=== PATIENT | female | born 1985 | race Caucasian/White ===

== ENCOUNTER 2020-06-04 15:51 | Outpatient (REF) | payer OTHER, SELFPAY ==
--- NOTE | 2020-06-04 15:58 | XR_ITS ---
EXAMINATION: XR CHEST CLINICAL INFORMATION: Cough. COMPARISON: Chest 12/18/2012 TECHNIQUE: 2 views of the chest were obtained. FINDINGS: No significant abnormality is noted involving the heart, lungs, mediastinum, bony thorax or soft tissues. XR/XR chest 2V IMPRESSION: Unremarkable chest examination.
== END 2020-06-04 15:52 | disposition home or self-care (01) ==
LOC: HO.HMGCX 15:51
PROVIDERS: Visit Provider Nurse Practitioner Family
DX: R05 Cough (principal)
CPT/HCPCS: 71046

== ENCOUNTER 2024-12-16 13:49 | Outpatient (AMB) | payer OTHER, SELFPAY ==
--- NOTE | 2024-12-16 13:51 | MHC.PC.OV ---
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 She lives at home with her fiance and 2 children and feels safe there. 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 She does report she drinks 3-4 alcoholic beverages 3-4 nights a week. No history of cigarette smoking. No illicit drug use. Does smoke marijuana several times weekly. She exercises regularly with callus Nx and jogging. Overall follows a healthy diet. Concerns: Believe she is perimenopausal. Still getting regular periods. She is reporting hot flashes and occasional swelling Health maintenance: Mammograms to start at age 41 Colonoscopies to started at age 46 ROS: General: No fevers, malaise, unintentional weight loss HEENT: No blurred vision, diplopia. No sore throat, nasal congestion, rhinorrhea, sinus pain, ear pain. No hearing loss Neck - no adenopathy Cardiovascular: No chest pain, palpitations, or leg edema Respiratory: No shortness of breath, wheezing, cough Breast: No pain, palpable lumps, nipple inversion GI: No dysphagia, odynophagia, globus sensation. No abdominal pain, nausea, vomiting, diarrhea, constipation, melena, hematochezia : No dysuria, hematuria, increased urinary frequency, decreased urinary output. [employer]: No abn vaginal bleeding or discharge MSK: No myalgia, back pain, arthralgias Neuro: No headaches, weakness, paresthesias Psych: no depression/anxiery. No AH/VH. No SI/HI Skin: No rashes or lesions EXAM: Constitutional - Awake and Alert, No apparent distress Eyes - PERRLA, EOMI. Anicteric Ears - external ears normal, canals clear, TMs intact and pearly paz with good cone of light Nose- septum midline, nares clear, no sinus tenderness Mouth/throat- mucosa moist, tongue and uvula midline, no erythema/edema or tonsillar adenopathy. Neck-trachea midline, thyroid symmetric without palpable nodules, no adenopathy Cardiovascular - S1S2, RRR, No edema Respiratory - Normal lung expansion, Normal respiratory effort, No respiratory distress, CTA bilaterally Gastrointestinal - NT / ND; +BS; No rebound or guarding - No CVA tenderness Extremities - no calf tenderness bilaterally, no swelling Musculoskeletal - Normal inspection, normal ROM Skin - Warm/Dry, no concerning lesions Neurological - Alert & oriented x3, CN II-XII in tact, 5/5 strength BUE and BLE, 2+ patellar reflexes, sensation intact Psychological - Appropriate affect [facility] Medical History (Updated 12/16/24 @ 14:37 by JOSE ALBERTO De Jesus) Herpes zoster Surgical History (Updated 12/16/24 @ 14:23 by JOSE ALBERTO De Jesus) No pertinent past surgical history Family History (Updated 12/16/24 @ 14:24 by JOSE ALBERTO De Jesus) Father CAD (coronary artery disease) Atrial fibrillation Diabetes Asthma Father Chronic kidney disease Social History Patient Tobacco Use Status: Never used Tobacco e-Cigarette/Vaping Use: Never Used Questionnaire PHQ-9 Over the last 2 weeks, how often have you been bothered by any of the following problems? 1. Little interest or pleasure in doing things: not at all 2. Feeling down, depressed, or hopeless: not at all 3. Trouble falling or staying asleep, or sleeping too much: not at all 4. Feeling tired or having little energy: not at all 5. Poor appetite or overeating: not at all 6. Feeling bad about yourself - or that you are a failure or have let yourself or your family down: not at all 7. Trouble concentrating on things, such as reading the newspaper or watching television: not at all 8. Moving or speaking so slowly that other people could have noticed. Or the opposite - being so fidgety or restless that you have been moving around a lot more than usual: not at all 9. Thoughts that you would be better off or of hurting yourself in some way: not at all Total score: 0 Source: Developed by Drs. Jonnathan Baird, Dez Jackson and colleagues, with an educational jocelyne from [employer]. Thrive Questionnaire Date Thrive assessed: 12/16/24 I am a: Patient What is your living situation today?: I have a steady place to live Within the past 12 months, did the food you bought not last and you didn't have the money to get more?: Never true Within the past 12 months, did you worry whether your food would run out before you got money to buy more?: Never true Do you have trouble paying for medicines?: No Do you have trouble getting transportation to medical appointments?: No Do you have trouble paying your heating and electricity bill?: No Do you have trouble taking care of your child, family member or friend?: No Do you have trouble with day-to-day activities such as bathing, preparing meals, shopping, managing finances, etc.?: No Are you currently unemployed and looking for a job?: No Are you interested in more education?: No THRIVE Score: 0 AUDIT C Alcohol Use Questionnaire (AUDIT-C) 1. How often do you have a drink containing alcohol?: 2-3 times a week 2. How many drinks containing alcohol do you have on a typical day when you are drinking?: 3 or 4 Total Score: 4 CLAUDIO-7 AMB Questionnaire CLAUDIO-7 Date CLAUDIO - 7 assessed: 12/16/24 Feeling nervous, anxious, or on edge: 0 = Not at all Not being able to stop or control worryin = Not at all Worrying too much about different things: 0 = Not at all Trouble relaxin = Not at all Being so restless that it is hard to sit still: 0 = Not at all Becoming easily annoyed or irritable: 0 = Not at all Feeling afraid as if something awful might happen: 0 = Not at all Total CLAUDIO-7 score (0-4 normal; 5-9 mild; 10-14 moderate; 15-21 severe): 0 Source: Developed by Drs. Jonnathan Baird, Dez Jackson and colleagues, with an educational jocelyne from [employer]. Physical exam (Primary Care) Vital Signs: Last Vital Signs Temp 97.3 F 12/16/24 13:55 Pulse 84 12/16/24 13:55 Resp 16 12/16/24 13:55 BP 110/68 12/16/24 13:55 Pulse Ox 99 12/16/24 13:55 Oxygen Delivery Method Room Air 12/16/24 13:55 BMI result Body Mass Index 24.1 Tobacco/Smoking Status: Tobacco use Status Tobacco use date assessed 12/16/24 12/16/24 13:58 Patient Tobacco Use Status Never used Tobacco 12/16/24 13:58 e-Cigarette/Vaping Use Never Used 12/16/24 13:58 PHQ-9: PHQ-9 Score PHQ-9: Total score 0 12/16/24 13:59 Thrive Assessment: Date of Thrive Assessment Date Thrive assessed 12/16/24 12/16/24 13:59 Coding Level of Care Code New Pt Prev Care 18-39yr([id number] Diagnoses Routine medical exam Z00.00 Assessment & Plan Assessment & Plan (1) Routine medical exam: Code(s): Z00.00 - Encounter for general adult medical examination without abnormal findings Plan: 39-year-old female presents for annual physical exam is found to be in a good general state of health. She is counseled on alcohol use recommending no more than 1-2 alcoholic beverages in a sitting and no more than 7 alcoholic beverages in a week. Counseled on marijuana use-recommending at of ulcer tinctures rather than smoking. Were hot flashes, will check TSH but could also be perimenopausal. She can trial black cohosh [id number] if interested. Plan Routine screening labs as ordered below Continue with screening mammograms, Pap smears, colonoscopies Continue following for annual skin exams and use sun protection Annual eye exams Wear seat belt in car Recommend regular exercise and healthy diet Follow up in 1 year for annual physical Orders: Orders TSH reflex Free T4 Today Z00.00 - Encounter for general adult medical examination without abnormal findings Basic Metabolic Panel Today Z00.00 - Encounter for general adult medical examination without abnormal findings Complete Blood Count Auto Diff Today Z00.00 - Encounter for general adult medical examination without abnormal findings Lipid Panel Today Z00.00 - Encounter for general adult medical examination without abnormal findings Liver Panel Today Z00.00 - Encounter for general adult medical examination without abnormal findings Vitamin D 25-OH Total Today Z00.00 - Encounter for general adult medical examination without abnormal findings Medications: Discontinued sulfamethoxazole-trimethoprim 800-160 mg (Bactrim DS) Discontinued Reason: Patient Completed Course 1 tab PO BID 20 tabs 0RF
[2024-12-16 13:55] VITALS: BP 110/68; PULSE 84; RESP 16; TEMP 36.3; O2SAT 99; BMI 24.1
== END 2024-12-16 14:35 | disposition home or self-care (01) ==
LOC: HO.HMCHD 13:50
PROVIDERS: PCP Physician Assistant; Visit Provider Physician Assistant
DX: Z00.00 Encounter for general adult medical examination without abnormal findings (principal)

== ENCOUNTER 2024-12-18 07:51 | Outpatient (REF) | payer OTHER, SELFPAY ==
[2024-12-18 08:05] LABS: MANUAL DIFF FLAG NO
[2024-12-18 08:44] LABS: Hematocrit 40.9 % (37.0-47.0); Hemoglobin 13.9 g/dl (12.0-16.0); Imm Gran Abs Auto 0.01 X10*3/uL (0.00-0.03); Imm Gran Pct Auto 0.2 % (0.0-0.4); Lymphocytes Absolute Auto 1.3 X10*3/uL (1.2-4.9); Mean Corpuscular HGB Conc 34.0 g/dl (31.0-35.0); Mean Corpuscular Hemoglobin 31.7 pg (27.0-33.0); Mean Corpuscular Volume 93.2 fL (80.0-98.0); NRBC Abs Auto 0.000 X10*3/uL (0.0-0.012); NRBC Pct Auto 0.0 /100WBC (0.0-0.2); Platelet Count 212 X10*3/uL (160-400); Red Blood Count 4.39 X10*6/uL (4.20-5.50); White Blood Count 6.2 X10*3/uL (4.8-10.8)
[2024-12-18 09:21] LABS: Alanine Aminotransferase 21 U/L (0-31); Albumin Level 4.6 g/dL (3.5-5.0); Alkaline Phosphatase 62 U/L (39-117); Anion Gap 9 (12-20); Aspartate Amino Transferase 21 U/L (5-31); Blood Urea Nitrogen 14 mg/dL (9-16); Calcium 9.3 mg/dL (8.4-10.2); Carbon Dioxide 25 mmol/L (22-29); Chloride 107 mmol/L (96-108); Cholesterol 179 mg/dL (<200); Estimated Glomerular Filt Rate > 60; HDL Cholesterol 65 mg/dL (>40); Potassium 4.4 mmol/L (3.3-5.1); Sodium 137 mmol/L (135-145); Total Protein 7.2 g/dL (6.5-8.0); Triglycerides 74 mg/dL (<150)
== END 2024-12-18 07:52 | disposition home or self-care (01) ==
LOC: HO.LAB 07:51
PROVIDERS: PCP Physician Assistant; Visit Provider Physician Assistant
DX: Z00.00 Encounter for general adult medical examination without abnormal findings (principal)
CPT/HCPCS: 36415; 80048; 80061; 80076; 82306; 84443; 85025

== ENCOUNTER 2025-02-19 10:02 | Outpatient (AMB) | payer OTHER, SELFPAY ==
--- NOTE | 2025-02-19 10:12 | A.OFFPC_ITS ---
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 She reports that she has been cutting back on alcohol consumption. She had been drinking 3-4 tall IPAs to get intoxicated and potentially black out. Began experiencing interpersonal issues, and her daughter made a comment about her drinking. She stopped drinking on Feb 03. No withdrawal. No hx of withdrawal including w/d seizure. About 8 days ago she did drink at the [facility] but then stopped again. She tells me she even attended a concert last week and did not consume any alcohol which would typically be an environment where she would be drinking heavily. She does tell me that last night, she did again consume about 3 tall I PAs for her fiancee's birthday and did get intoxicated. She desires to stop drinking completely. She does report that she feels mad after she drinks. She is not interested in 12 step programs but would consider other programs potentially. States she feels she has been drinking as a coping mechanism as she states this makes her feel less anxious and numbness her. With the anxiety, she feels a tightness in her stomach and chest. She also endorses feelings of emptiness and hopelessness with significant intrusive thoughts/rumintation, especially at bedtime. She has difficulty focusing. No history of bipolar disorder but does have strong family history of psychiatric disorders on her father's side. She states she does feel hyperverbal and at times panicked but denies any hypersexuality, excessive spending, inability to sleep or other symptoms consistent with manny. She does report she has a history of depression and anxiety and does have a history of suicide attempt where she overdosed on Tylenol at age 17. She states that she also has a history of cutting behavior in her teenage years. She has been hospitalized several times as a result. She states in the past, she has been prescribed several SSRIs that have not been helpful. She felt that Wellbutrin was somewhat helpful in the past. She has not been on any medications in about 20 years. She currently denies any SI/HI. She has plans on scheduling a counseling appt at [facility] in [place]. ROS: see hpi EXAM: Constitutional - Awake and Alert, No apparent distress Eyes - PERRL Cardiovascular - S1S2, RRR, No edema Respiratory - Normal lung expansion, Normal respiratory effort, No respiratory distress, CTA bilaterally Extremities - no calf tenderness bilaterally, no swelling Skin - Warm/Dry Neurological - Alert & oriented x3 Psychological - Appropriate affect, hyperverbal at times PFSH Medical History (Updated 02/19/25 @ 10:50 by JOSE ALBERTO De Jesus) Anxiety Major depressive disorder Alcohol use disorder Herpes zoster Surgical History (Updated 12/16/24 @ 14:23 by JOSE ALBERTO De Jesus) No pertinent past surgical history Family History (Updated 12/16/24 @ 14:24 by JOSE ALBERTO De Jesus) Father CAD (coronary artery disease) Atrial fibrillation Diabetes Asthma Father Chronic kidney disease Social History Patient Tobacco Use Status: Never used Tobacco e-Cigarette/Vaping Use: Never Used Questionnaire Thrive Questionnaire Date Thrive assessed: 12/16/24 CLAUDIO-7 AMB Questionnaire CLAUDIO-7 Date CLAUDIO - 7 assessed: 12/16/24 Source: Developed by Drs. Jonnathan Baird, Rosangela Muller, Dez Bonilla and colleagues, with an educational jocelyne from [employer]. Physical exam (Primary Care) Vital Signs: Last Vital Signs Temp 98.5 F 02/19/25 10:14 Pulse 68 02/19/25 10:14 Resp 14 02/19/25 10:14 BP 100/74 02/19/25 10:14 Pulse Ox 99 02/19/25 10:14 Oxygen Delivery Method Room Air 02/19/25 10:14 BMI result Body Mass Index 24.0 Tobacco/Smoking Status: Tobacco use Status Tobacco use date assessed 12/16/24 02/19/25 10:14 Patient Tobacco Use Status Never used Tobacco 02/19/25 10:14 e-Cigarette/Vaping Use Never Used 02/19/25 10:14 Thrive Assessment: Date of Thrive Assessment Date Thrive assessed 12/16/24 02/19/25 10:14 Coding Level of Care Code Est Pt Level 4 (54555) Diagnoses Alcohol use disorder F10.90 Major depressive disorder F32.9 Anxiety F41.9 Assessment & Plan Assessment & Plan (1) Alcohol use disorder: Code(s): F10.90 - Alcohol use, unspecified, uncomplicated Category: Medical Plan: Commended on periods of cessation and encouraged ongoing abstinence. Trial naltrexone. Counseled on dosing and side effects. Encouraged to attend a support group meeting, recommended SMART program as she is not interested in a 12 step program. Follow-up with counseling (2) Major depressive disorder: Code(s): F32.9 - Major depressive disorder, single episode, unspecified Category: Medical Plan: Prescribed Wellbutrin 150 mg XL to be taken every morning which should help with her depression as well as provide some assistance with alcohol cessation. Counseled on side effects. Recommend following up with counselor (3) Anxiety: Code(s): F41.9 - Anxiety disorder, unspecified Category: Medical Plan: Wellbutrin as above. She can also use hydroxyzine as needed at night to help with rumination. Also given information on mindfulness/grounding techniques. Scheduled appointment with counselor Plan Follow-up in the office in 1 month, sooner if needed. Should symptoms worsen or she develop any SI, present to the ER or call 911 Medications: New naltrexone Take 1 tab daily x 3 days, can increase to 2 tabs daily if ongoing symptoms 50 mg PO DAILY 60 tabs 0RF bupropion HCl XL (Wellbutrin XL) 150 mg PO QAM 90 tabs 0RF hydroxyzine HCl 25 mg PO BEDTIME 90 tabs 0RF Patient Instructions: Mindfullness information - [email or web address]://[email or web address]/worksheets/xuf-ab-khnwinoe-mindfulness-meditation SMART - non 12 step support group. [email or web address]
[2025-02-19 10:14] VITALS: BP 100/74; PULSE 68; RESP 14; TEMP 36.9; O2SAT 99; BMI 24.0
== END 2025-02-19 10:43 | disposition home or self-care (01) ==
LOC: HO.HMCHD 10:03
PROVIDERS: PCP Physician Assistant; Visit Provider Physician Assistant
DX: F10.90 Alcohol use, unspecified, uncomplicated (principal); F32.9 Major depressive disorder, single episode, unspecified; F41.9 Anxiety disorder, unspecified

== ENCOUNTER → 2025-03-26 08:03 | Outpatient (AMB) | payer OTHER, SELFPAY ==
--- NOTE | 2025-03-26 07:58 | A.OFFPC_ITS ---
Vital Signs 03/26/25 08:08 Height 5 ft 5.12 in Weight 64.864 kg BMI 23.7 BP 116/72 Blood Pressure Location Lt brachial Position Sitting Respiration 16 Pulse 95 Pulse Source Pulse Oximeter Temp 97.8 F Temp Source Temporal Artery Scan Pulse Oximetry (%) 97 Oxygen Delivery Method Room Air Intake Visit Reasons: 1 Month F/U [employer] Required: No Accompanied by: Self / Same As Patient Allergies amoxicillin (Amoxicillin) Allergy (Unknown, Verified 03/26/25 07:59) RASH, hives penicillin V Allergy (Unknown, Verified 03/26/25 07:59) hives Penicillins Allergy (Unknown, Verified 03/26/25 07:59) RASH Medication List - Last Reconciled 03/26/25 by JOSE ALBERTO De Jesus bupropion HCl XL (Wellbutrin XL) 150 mg PO QAM Tobacco use date assessed: 12/16/24 HPI HPI Comments History of Present Illness Details 31-year-old female with history of depre ssion and alcohol use disorder presenting to the office today for follow-up. At last visit, she expressed desire to cut back on alcohol consumption-has been drinking 3-4 tall IPAA is to get intoxicated and potentially blackout. She was given prescription for Wellbutrin and naltrexone but states she has never taken the naltrexone. Reports she has not taking the naltrexone. Has cut back on alcohol consumption. Reports now drinking socially. Reports she will have 2-3 beers maybe 2 nights on the weekends. However, she does not have significant urges like previously. She can drive by a liquor store without feeling a need to consume alcohol. The Wellbutrin has also likely played a part in this. She also states that she has felt less depressed and feels like she is thinking clear and is able to finish tasks. She is also sleeping better. ROS: General: No fevers, malaise, unintentional weight loss HEENT: No blurred vision, diplopia. No sore throat, nasal congestion, rhinorrhea, sinus pain, ear pain Cardiovascular: No chest pain, palpitations, or leg edema Respiratory: No shortness of breath, wheezing, cough GI: No abdominal pain, nausea, vomiting, diarrhea, constipation, melena, hematochezia : No dysuria, hematuria, increased urinary frequency, decreased urinary output MSK: No myalgia, back pain Neuro: No headaches, weakness, paresthesias Psych: see hpi Skin: No rashes or lesions EXAM: Constitutional - Awake and Alert, No apparent distress Eyes - PERRL Cardiovascular - S1S2, RRR, No edema Respiratory - Normal lung expansion, Normal respiratory effort, No respiratory distress, CTA bilaterally Extremities - no calf tenderness bilaterally, no swelling Skin - Warm/Dry Neurological - Alert & oriented x3 Psychological - Appropriate [facility] Medical History Anxiety Major depressive disorder Alcohol use disorder Herpes zoster Surgical History No pertinent past surgical history Family History Father CAD (coronary artery disease) Atrial fibrillation Diabetes Asthma Father Chronic kidney disease Social History Patient Tobacco Use Status: Never used Tobacco e-Cigarette/Vaping Use: Never Used Questionnaire Thrive Questionnaire Date Thrive assessed: 12/16/24 CLAUDIO-7 AMB Questionnaire CLAUDIO-7 Date CLAUDIO - 7 assessed: 12/16/24 Source: Developed by Drs. Jonnathan Baird, Rosangela Muller, Dez Bonilla and colleagues, with an educational jocelyne from [employer]. Physical exam (Primary Care) Vital Signs: Last Vital Signs Temp 97.8 F 03/26/25 08:08 Pulse 95 03/26/25 08:08 Resp 16 03/26/25 08:08 BP 116/72 03/26/25 08:08 Pulse Ox 97 03/26/25 08:08 Oxygen Delivery Method Room Air 03/26/25 08:08 BMI result Body Mass Index 23.7 Tobacco/Smoking Status: Tobacco use Status Tobacco use date assessed 12/16/24 03/26/25 07:59 Patient Tobacco Use Status Never used Tobacco 03/26/25 07:59 e-Cigarette/Vaping Use Never Used 03/26/25 07:59 Thrive Assessment: Date of Thrive Assessment Date Thrive assessed 12/16/24 03/26/25 07:59 Coding Level of Care Code Est Pt Level 4 (73575) Diagnoses Alcohol use disorder F10.90 Major depressive disorder F32.9 Anxiety F41.9 Assessment & Plan Assessment & Plan (1) Alcohol use disorder: Code(s): F10.90 - Alcohol use, unspecified, uncomplicated Category: Medical Plan: Improved. Discussed safe alcohol consumption. Commended on efforts thus far. Recommend no more than 1 per day. Continue Wellbutrin. Advised if urges recur, can trial naltrexone (2) Major depressive disorder: Code(s): F32.9 - Major depressive disorder, single episode, unspecified Category: Medical Plan: Much improved. Continue Wellbutrin. Monitor for adverse side effects including recurrence of SI and present to the ER should these recur. Follow-up with counselor to help with coping mechanisms and continue using those that she has previously used in the past (3) Anxiety: Code(s): F41.9 - Anxiety disorder, unspecified Category: Medical Plan: See HPI Plan Follow-up in the office in 1 month, sooner if needed. Should symptoms worsen or she develop any SI, present to the ER or call 911
[2025-03-26 08:08] VITALS: BP 116/72; PULSE 95; RESP 16; TEMP 36.6; O2SAT 97; BMI 23.7
== END ==
LOC: HO.HMCHD 08:03
PROVIDERS: PCP Physician Assistant; Visit Provider Physician Assistant
DX: F10.90 Alcohol use, unspecified, uncomplicated (principal); F32.9 Major depressive disorder, single episode, unspecified; F41.9 Anxiety disorder, unspecified